=== PATIENT | male | born 1940 | race Caucasian/White ===

== ENCOUNTER → 2019-12-13 | Outpatient (CLI) | payer OTHER, MEDICARE ==
[~2019-12-13] MED LIST: ACETAMINOPHEN325 M1 PO; ADULT LOW DOSE81 MG PO; ASPIRIN EC81 M1 OR; CALCIUM 500 +1 EAC5 PO; CALCIUM CITRAT1 EA16 OR; CALCIUM CITRAT250 MG PO; CHLORTHALIDONE25 MG PO; COLACE 100 MG100 MG PO; COLACE100 MG; COUMADIN 2 MG TA2 M1 PO; COUMADIN 5 MG TA5 M1 PO; COUMADIN6 MG PO; FISH OIL 1,0001 EAC5 PO; FISH OIL 1,2001 EAC3 OR; FOLTX1 TAB PO; HYDROCHLOROTHIA25 M1 OR; HYDROCODON-ACE1 EAC5 PO; HYTRIN 2MG CAPSU2 M1 PO; IRON325 PO; LISINOPRIL40 MG PO; NORVASC10 MG OR; NUCYNTA ER100 MG PO; OXYCONTIN10 M1; PERCOCET 10-321 EACH PO; PRILOSEC40 MG PO; SLO-NIACIN500 MG OR; SM FISH OIL 1,1 EACH PO; TRAMADOL 50 MG50 MG PO; VITAMIN D-32000 UNIT PO; VYTORIN 10-801 EACH PO
== END ==
LOC: SJCVC 10:34
PROVIDERS: ATTEND Internal Medicine Cardiovascular Disease
DX: R94.31 Abnormal electrocardiogram [ECG] [EKG] (principal); I49.9 Cardiac arrhythmia, unspecified; I11.9 Hypertensive heart disease without heart failure; E78.00 Pure hypercholesterolemia, unspecified; Z79.899 Other long term (current) drug therapy; Z85.46 Personal history of malignant neoplasm of prostate

== ENCOUNTER → 2020-06-24 | Outpatient (CLI) | payer OTHER, MEDICARE | LOC: SJCVCIMAG 09:10 | PROVIDERS: ATTEND Internal Medicine Cardiovascular Disease | DX: I08.0 Rheumatic disorders of both mitral and aortic valves (principal); I10 Essential (primary) hypertension; Z79.899 Other long term (current) drug therapy ==